=== PATIENT | female | born 1980 | race African-American/Black ===

== ENCOUNTER 2019-10-17 17:03 | Emergency (ER) | payer OTHER, SELFPAY ==
[~2019-10-17] VITALS: Ht 177.8 cm; Wt 86.2 kg
[~2019-10-17 17:03] MED LIST: NAPROSYN500 M1 ORAL; NKM; VALIUM5 MG ORAL
[2019-10-17 17:20] VITALS: BP 129/77
--- NOTE | 2019-10-17 17:35 | Emergency Room Report ---
History of Present Illness General Chief Complaint: Burn/Smoke Inhalation Source: Patient Present Illness HPI 39 YO female presents to the ED c/o 10/03 in severity pain, tenderness, progressive redness and oozing from a burn that she sustained 4 days ago on her right thigh. Pt. reports she has been applying Neosporin cream. Pt. reports she did wear jeans without a bandage/dressing. 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 Pt. reports she is UTD with her Tetanus. She reports palpation exacerbates her symptoms. She denies any other aggravating or relieving factors at this time. 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 COVID-19 Screening: Negative COVID-19 COVID-19 Testing Source: throat Patient History Past Medical History: see triage record Past Surgical History: none Pertinent Family History: none Last Menstrual Period: 10/10/19 Now: No Immunizations: UTD Reviewed Nursing Documentation: PMH: Agreed; PSxH: Agreed Nursing Documentation-PMH Past Medical History: No Stated History Review of Systems All Other Systems: negative except mentioned in HPI Physical Exam Vital Signs Date Time Temp Pulse Resp B/P (MAP) Pulse Ox O2 Delivery O2 Flow Rate FiO2 10/17/19 17:08 98.2 63 16 129/77 (94) 96 Room Air Sp02 EP Interpretation: reviewed, normal General Appearance: no apparent distress, alert, GCS 15, non-toxic Head: normocephalic, atraumatic Eyes: bilateral eye normal inspection, bilateral eye PERRL ENT: hearing grossly normal, normal voice Neck: full range of motion Respiratory: lungs clear, normal breath sounds, speaking full sentences Cardiovascular #1: regular rate, rhythm Musculoskeletal: normal range of motion, gait/station normal, non-tender Neurologic: alert, motor strength/tone normal, oriented x3, sensory intact, responsive, speech normal Psychiatric: judgement/insight normal Skin: other - Second-degree burn of the lateral right thigh covering 1% of the BSA, non-circumferential with a secondary cellulitis Medical Decision Making PA Attestation Dr. Mendoza is my supervising Physician whom patient management has been discussed with. Diagnostic Impression: Primary Impression: Second degree burn of lower leg Qualified Codes: T24.231A - Burn of second degree of right lower leg, initial encounter Additional Impression: Cellulitis Qualified Codes: L03.115 - Cellulitis of right lower limb ER Course 39 YO female presents to the ED c/o 10/03 in severity pain, tenderness, progressive redness and oozing from a burn that she sustained 4 days ago on her right thigh. Pt. reports she has been applying Neosporin cream. Pt. reports she did wear jeans without a bandage/dressing. 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 Pt. reports she is UTD with her Tetanus. She reports palpation exacerbates her symptoms. She denies any other aggravating or relieving factors at this time. Ddx considered but are not limited to cellulitis, burn, SJS, fungal infection, DVT Vital signs: are WNL, pt. is afebrile H&PE are most consistent with : Second-degree burn of the lateral right thigh covering 1% of the BSA, non-circumferential with a secondary cellulitis ORDERS: none required at this time, the diagnosis is clinical ED INTERVENTIONS: -Wound care, Silvadene application and sterile dressing. DISCHARGE: At this time pt. is stable for d/c to home. Will provide printed patient care instructions, and any necessary prescriptions. Care plan and follow up instructions have been discussed with the patient prior to discharge. Last Vital Signs Date Time Temp Pulse Resp B/P (MAP) Pulse Ox O2 Delivery O2 Flow Rate FiO2 10/17/19 17:08 98.2 63 16 129/77 (94) 96 Room Air Disposition: HOME, SELF-CARE Condition: Stable Scripts Cephalexin* (KEFLEX*) 500 Mg Capsule 500 MG ORAL EVERY 12 HOURS for 7 Days, #14 CAP 0 Refills Prov: Florence Botello 10/17/19 Acetaminophen With Codeine (T#3) (TYLENOL #3 TAB*) Y Tab 1 TAB ORAL Q6HR PRN for For Pain, #9 TAB Prov: Florence Botello 10/17/19 Silver Sulfadiazine (SILVADENE) 20 Gm Cream..g. 1 APPLIC TP BID, #20 GM Prov: Florence Botello 10/17/19 Referrals: [facility] Patient Instructions: Cellulitis, [id number], Second-Degree Burn Additional Instructions: Take medications as directed. * Do not drink alcohol, drive, or operate heavy machinery while taking Tylenol # 3 as this may cause drowsiness. Follow up with a Primary Care Provider in 3-5 days, even if your symptoms have resolved. [facility] is a certified [facility] Center by the [place] [employer] For more information on [facility], please visit [email or web address] 24-Hour In[facility]: Burn Clinic: --Please review list of primary care clinics, if you do not already have a primary care provider Return sooner to ED if new symptoms occur, or current symptoms become worse. - Please note that this Emergency Department Report was dictated using [employer] truck driver technology software, occasionally this can lead to erroneous entry secondary to interpretation by the dictation equipment. Florence Botello Oct 17, 2019 17:35
[2019-10-17] MEDS ORDERED: ACETAMINOPHEN-1 EAC1 ORAL (17:37)
[2019-10-17] MEDS ORDERED: CEPHALEXIN500 MG ORAL (17:37)
[2019-10-17] MEDS ORDERED: SILVADENE20 GM TP (17:37)
== END 2019-10-17 18:14 | disposition home or self-care (01) ==
LOC: EMR 17:25
DX: T24.231A Burn of second degree of right lower leg, initial encounter (principal); L03.115 Cellulitis of right lower limb; X58.XXXA Exposure to other specified factors, initial encounter; Y92.9 Unspecified place or not applicable
CPT/HCPCS: 99282